=== PATIENT | male | born 1960 ===

== ENCOUNTER 2020-09-22 05:45 | Day surgery (SDC) | payer OTHER ==
[~2020-09-22] VITALS: Ht 170.2 cm; Wt 77.6 kg
[~2020-09-22 05:45] MED LIST: TAMS0.4C PO; [UNRECOGNIZED DRUG - OTHER] PO
[2020-09-22] MEDS ORDERED: TOLTERODINE TART2 M1 (08:13)
[2020-09-22] MEDS ORDERED: CIALIS5 MG (08:15)
[2020-09-22] MEDS ORDERED: PYRIDIUM200 MG PO (09:27)
[2020-09-22] MEDS ORDERED: CEPHALEXIN500 MG PO (09:28)
[2020-09-22] MEDS ORDERED: ULTRAM50 MG PO (09:30)
== END 2020-09-22 14:15 | disposition home or self-care (01) ==
LOC: SURH 05:45 → O/R 05:45 → CIR.AMB 05:45 → SURH 06:00 → EDSTATUS 10:45 → SURH 10:45 → CIR.AMB 14:15 → O/R 14:15
PROVIDERS: ATTEND Surgery
DX: N40.1 Benign prostatic hyperplasia with lower urinary tract symptoms (principal); Z20.822 Contact with and (suspected) exposure to COVID-19